=== PATIENT | female | born 2000 | race Caucasian/White ===

== ENCOUNTER 2021-11-16 08:41 | Outpatient (CLI) | payer BC, OTHER | END 2021-11-16 08:42 | disposition home or self-care (01) | LOC: MRI 08:41 | PROVIDERS: ATTEND Obstetrics & Gynecology | DX: R10.2 Pelvic and perineal pain (principal); N94.6 Dysmenorrhea, unspecified; N92.0 Excessive and frequent menstruation with regular cycle; K59.00 Constipation, unspecified; Z98.890 Other specified postprocedural states; Z87.42 Personal history of other diseases of the female genital tract | CPT/HCPCS: 72197 ==